=== PATIENT | female | born 1945 | race Caucasian/White ===

== ENCOUNTER 2017-05-07 13:06 | Inpatient (IN) | payer OTHER ==
[~2017-05-07] VITALS: Ht 162.6 cm; Wt 68.1 kg
[2017-05-07] MEDS ORDERED: NITR.4 SL (13:12)
[2017-05-07] MEDS ORDERED: METF500T4 PO (13:12)
[2017-05-07] MEDS ORDERED: NITROGLYCERIN 2% (1 GM=INCH) PACKET TP ONE (14:30)
[2017-05-07] MEDS ORDERED: ASPIRIN 81 MG CHEWABLE TABLET PO ONE (14:30)
[2017-05-07] MEDS ORDERED: NITROGLYCERIN 0.4 MG SUBLINGUAL TABLET #25 SL ONE (14:30)
[2017-05-07 14:33] LABS: BASOPHILS % (AUTO) 0.5 % (0.0-2.0); EOSINOPHILS % (AUTO) 1.4 % (1.0-6.0); HEMATOCRIT 41.7 % (36-46); HEMOGLOBIN 14.2 g/dL (12.0-16.0); LYMPHOCYTES # (AUTO) 1.8 K/uL (1.0-4.8); LYMPHOCYTES % (AUTO) 30.4 % (22.0-44.0); MEAN CORPUSCULAR HEMOGLOBIN 32.2 pg (26.0-34.0); MEAN CORPUSCULAR HGB CONC 34.1 G/dL (31.0-37.0); MEAN CORPUSCULAR VOLUME 95 fL (80-100); MONOCYTES # (AUTO) 0.4 K/uL (0.1-1.0); NEUTROPHILS # (AUTO) 3.7 K/uL (1.8-7.7); NEUTROPHILS % (AUTO) 61.7 % (40.0-70.0); PLATELET COUNT (AUTO) 163 K/uL (150-450); RED BLOOD CELL COUNT(AUTO) 4.41 MIL/uL (4.00-5.20); RED CELL DISTRIBUTION WIDTH 13.6 % (11.5-14.5)
[2017-05-07 14:39] LABS: ANION GAP 8 mmol/L (8-16); CARBON DIOXIDE 29 mmol/L (22-29); CHLORIDE 102 mmol/L (98-107); CREATININE 0.82 mg/dL (0.60-1.30); GLOMERULAR FILTR. RATE CALC > 60 mL/min (>60); POTASSIUM 4.4 mmol/L (3.5-5.1); SODIUM SERUM 139 mmol/L (136-145); UREA NITROGEN, BLOOD 16 mg/dL (7-18)
[2017-05-07 14:44] LABS: ALANINE AMINOTRANSFERASE 26 U/L (12-78); ALBUMIN 3.7 g/dL (3.4-5.0); ASPARTATE AMINOTRANSFERASE 17 U/L (15-37); BILIRUBIN,TOTAL 0.5 mg/dL (0.1-1.0); CREATINE KINASE, TOTAL 54 U/L (26-192); PROTHROMBIN TIME 10.2 SEC (9.4-11.6); TOTAL PROTEIN, SERUM 7.5 g/dL (6.4-8.2)
[2017-05-07 14:54] LABS: B-TYPE NATRIURETIC PEPTIDE 17 pg/mL (0-100)
[2017-05-07] MEDS ORDERED: ACETAMINOPHEN 325 MG TABLET PO PRN ×2 (15:45→16:45)
[2017-05-07] MEDS ORDERED: ONDANSETRON HCL 4 MG/2 ML VIAL IVP PRN ×2 (15:45→16:45)
[2017-05-07] MEDS ORDERED: 0.9% SODIUM CHLORIDE 10 ML SYRINGE IVP PRN (15:45)
[2017-05-07 16:20] VITALS: BP 145/74
[2017-05-07] MEDS ORDERED: DEXTROSE 50%-WATER 25 GM/50 ML SYRINGE IVP PRN (16:45)
[2017-05-07] MEDS ORDERED: HYDROCODONE/ACETAMINOPHEN 5-325 MG TABLET PO PRN (16:45)
[2017-05-07] MEDS ORDERED: BISACODYL 10 MG RECTAL RECTAL SUPPOSITORY PR PRN (16:45)
[2017-05-07] MEDS ORDERED: ZOLPIDEM TARTRATE 5 MG TABLET PO PRN (16:45)
[2017-05-07] MEDS ORDERED: MORPHINE SULFATE 2 MG/ML SYRINGE IVP PRN (16:45)
[2017-05-07] MEDS ORDERED: MAGNESIUM HYDROXIDE SUSPENSION 30 ML UDCUP PO PRN (16:45)
[2017-05-07 19:45] VITALS: BP 113/60
[2017-05-07] MEDS: DOCUSATE SODIUM 100 MG CAPSULE PO SCH (20:37)
[2017-05-07] MEDS: INSULIN ASPART 100 UNITS/ML SQ PRN (20:42)
[2017-05-08 00:18] VITALS: BP 121/65
[2017-05-08] MEDS: NITROGLYCERIN 2% (1 GM=INCH) PACKET TP SCH ×3 (00:53→15:39)
[2017-05-08] MEDS: HEPARIN SODIUM,PORCINE 5,000 UNITS/ML VIAL SQ SCH ×3 (00:57→15:39)
[2017-05-08 05:07] VITALS: BP 140/71
[2017-05-08 06:13] LABS: BASOPHILS % (AUTO) 0.4 % (0.0-2.0); EOSINOPHILS % (AUTO) 1.5 % (1.0-6.0); HEMATOCRIT 39.1 % (36-46); HEMOGLOBIN 13.3 g/dL (12.0-16.0); LYMPHOCYTES # (AUTO) 1.8 K/uL (1.0-4.8); LYMPHOCYTES % (AUTO) 29.7 % (22.0-44.0); MEAN CORPUSCULAR HEMOGLOBIN 32.5 pg (26.0-34.0); MEAN CORPUSCULAR HGB CONC 34.1 G/dL (31.0-37.0); MEAN CORPUSCULAR VOLUME 95 fL (80-100); MONOCYTES # (AUTO) 0.4 K/uL (0.1-1.0); MONOCYTES % (AUTO) 6.9 % (2.0-9.0); NEUTROPHILS # (AUTO) 3.8 K/uL (1.8-7.7); NEUTROPHILS % (AUTO) 61.5 % (40.0-70.0); PLATELET COUNT (AUTO) 149 K/uL (150-450); RED BLOOD CELL COUNT(AUTO) 4.11 MIL/uL (4.00-5.20); RED CELL DISTRIBUTION WIDTH 14.1 % (11.5-14.5); WHITE BLOOD COUNT (AUTO) 6.2 K/uL (4.5-11.0)
[2017-05-08 06:55] LABS: ALANINE AMINOTRANSFERASE 24 U/L (12-78); ALBUMIN 3.3 g/dL (3.4-5.0); ANION GAP 5 mmol/L (8-16); ASPARTATE AMINOTRANSFERASE 15 U/L (15-37); BILIRUBIN,TOTAL 0.6 mg/dL (0.1-1.0); CALCIUM, TOTAL 8.4 mg/dL (8.8-10.5); CARBON DIOXIDE 31 mmol/L (22-29); CHLORIDE 105 mmol/L (98-107); CHOL/HDL RATIO 2.5 (3.9-5.7); GLOMERULAR FILTR. RATE CALC > 60 mL/min (>60); POTASSIUM 4.1 mmol/L (3.5-5.1); SODIUM SERUM 141 mmol/L (136-145); TOTAL PROTEIN, SERUM 6.5 g/dL (6.4-8.2); UREA NITROGEN, BLOOD 14 mg/dL (7-18)
[2017-05-08 07:13] VITALS: BP 142/68
[2017-05-08] MEDS: MetFORMIN HCL 500 MG ER TABLET PO SCH ×2 (08:00→15:41)
[2017-05-08] MEDS ORDERED: IOVERSOL 350 MG/ML 100 ML VIAL ONE (09:23)
[2017-05-08] MEDS ORDERED: SODIUM CHLORIDE 0.9% 100 ML ONE (09:23)
[2017-05-08] MEDS: PANTOPRAZOLE SODIUM 40 MG DR TABLET PO SCH (10:41)
[2017-05-08] MEDS: AmLODIPine BESYLATE 10 MG TABLET PO SCH (10:41)
[2017-05-08] MEDS: ASPIRIN 81 MG CHEWABLE TABLET PO SCH (10:41)
[2017-05-08] MEDS: DOCUSATE SODIUM 100 MG CAPSULE PO SCH ×2 (10:41→20:10)
[2017-05-08 11:13] VITALS: BP 131/66
[2017-05-08 15:39] VITALS: BP 121/64
[2017-05-08 19:55] VITALS: BP 106/60
[2017-05-08] MEDS ORDERED: SIMVASTATIN 40 MG TABLET PO SCH (21:00)
[2017-05-08] MEDS: INSULIN ASPART 100 UNITS/ML SQ PRN (21:37)
[2017-05-09 00:10] VITALS: BP 107/60
[2017-05-09] MEDS: NITROGLYCERIN 2% (1 GM=INCH) PACKET TP SCH ×2 (01:15→08:31)
[2017-05-09 04:00] VITALS: BP 105/64
[2017-05-09 05:59] LABS: BASOPHILS % (AUTO) 0.2 % (0.0-2.0); EOSINOPHILS % (AUTO) 0.6 % (1.0-6.0); HEMATOCRIT 40.4 % (36-46); HEMOGLOBIN 13.7 g/dL (12.0-16.0); LYMPHOCYTES # (AUTO) 1.7 K/uL (1.0-4.8); LYMPHOCYTES % (AUTO) 22.9 % (22.0-44.0); MEAN CORPUSCULAR HEMOGLOBIN 32.1 pg (26.0-34.0); MEAN CORPUSCULAR HGB CONC 33.8 G/dL (31.0-37.0); MEAN CORPUSCULAR VOLUME 95 fL (80-100); MONOCYTES # (AUTO) 0.4 K/uL (0.1-1.0); MONOCYTES % (AUTO) 4.9 % (2.0-9.0); NEUTROPHILS # (AUTO) 5.4 K/uL (1.8-7.7); NEUTROPHILS % (AUTO) 71.4 % (40.0-70.0); PLATELET COUNT (AUTO) 154 K/uL (150-450); RED BLOOD CELL COUNT(AUTO) 4.25 MIL/uL (4.00-5.20); RED CELL DISTRIBUTION WIDTH 13.8 % (11.5-14.5); WHITE BLOOD COUNT (AUTO) 7.6 K/uL (4.5-11.0)
[2017-05-09 06:17] LABS: ALANINE AMINOTRANSFERASE 24 U/L (12-78); ALBUMIN 3.3 g/dL (3.4-5.0); ANION GAP 5 mmol/L (8-16); ASPARTATE AMINOTRANSFERASE 13 U/L (15-37); BILIRUBIN,TOTAL 0.5 mg/dL (0.1-1.0); CALCIUM, TOTAL 8.5 mg/dL (8.8-10.5); CARBON DIOXIDE 30 mmol/L (22-29); CHLORIDE 105 mmol/L (98-107); CREATININE 0.85 mg/dL (0.60-1.30); GLOMERULAR FILTR. RATE CALC > 60 mL/min (>60); POTASSIUM 4.7 mmol/L (3.5-5.1); SODIUM SERUM 140 mmol/L (136-145); TOTAL PROTEIN, SERUM 6.6 g/dL (6.4-8.2); UREA NITROGEN, BLOOD 19 mg/dL (7-18)
[2017-05-09 07:21] VITALS: BP 129/68
[2017-05-09] MEDS: AmLODIPine BESYLATE 10 MG TABLET PO SCH (08:30)
[2017-05-09] MEDS: PANTOPRAZOLE SODIUM 40 MG DR TABLET PO SCH (08:31)
[2017-05-09] MEDS: ASPIRIN 81 MG CHEWABLE TABLET PO SCH (08:31)
[2017-05-09] MEDS: HEPARIN SODIUM,PORCINE 5,000 UNITS/ML VIAL SQ SCH ×2 (08:31)
[2017-05-09] MEDS: DOCUSATE SODIUM 100 MG CAPSULE PO SCH (08:31)
[2017-05-09] MEDS: MetFORMIN HCL 500 MG ER TABLET PO SCH (08:36)
[2017-05-09 11:23] VITALS: BP 107/57
[2017-05-09] MEDS ORDERED: SIMV40TA5 PO (13:57)
[2017-05-09] MEDS ORDERED: AMLO10TA55 PO (13:57)
[2017-05-09] MEDS ORDERED: OMEP20 PO (13:57)
[2017-05-09 19:53] LABS: GLUCOSE,POINT OF CARE 164 MG/DL (70-110)
[2017-05-09 19:53] LABS: GLUCOSE,POINT OF CARE 155 MG/DL (70-110)
[2017-05-09 19:53] LABS: GLUCOSE,POINT OF CARE 248 MG/DL (70-110)
[2017-05-09 19:59] LABS: GLUCOSE,POINT OF CARE 166 MG/DL (70-110)
[2017-05-09 19:59] LABS: GLUCOSE,POINT OF CARE 251 MG/DL (70-110)
[2017-05-09 19:59] LABS: GLUCOSE,POINT OF CARE 122 MG/DL (70-110)
[2017-05-09 19:59] LABS: GLUCOSE,POINT OF CARE 196 MG/DL (70-110)
[2017-05-09 19:59] LABS: GLUCOSE,POINT OF CARE 153 MG/DL (70-110)
== END 2017-05-09 14:45 | disposition home or self-care (01) | DRG 392 ==
LOC: EDUNIT# 13:06 → EMS 13:10 → 5N 15:21
PROVIDERS: ADMIT Internal Medicine; ATTEND Internal Medicine
DX: K44.9 Diaphragmatic hernia without obstruction or gangrene (principal); I24.9 Acute ischemic heart disease, unspecified; E11.9 Type 2 diabetes mellitus without complications; E05.90 Thyrotoxicosis, unspecified without thyrotoxic crisis or storm; I10 Essential (primary) hypertension; R94.31 Abnormal electrocardiogram [ECG] [EKG]; E78.5 Hyperlipidemia, unspecified; H40.9 Unspecified glaucoma; Z79.82 Long term (current) use of aspirin; Z79.84 Long term (current) use of oral hypoglycemic drugs
CPT/HCPCS: 71260; 72193; 74160; 82962; 83735; 93005; 93306; 99285; J1644; J7050